=== PATIENT | female | born 1985 | race Caucasian/White ===

== ENCOUNTER 2016-11-07 06:46 | Inpatient (IN) | payer OTHER, MEDICAID ==
[2016-11-07] MEDS ORDERED: PRENATAL PLUS I1 TAB PO (09:19)
[2016-11-07] MEDS ORDERED: ZANTAC300 MG PO (09:19)
[2016-11-08] MEDS ORDERED: NORCO 325-5 MG1 TAB PO (13:00)
[2016-11-08] MEDS ORDERED: MOTRIN800 MG PO (13:00)
[2016-11-08] MEDS ORDERED: COLACE100 MG PO (13:02)
== END 2016-11-08 16:38 | disposition short-term general hospital (02) | DRG 775 ==
LOC: LDROP 06:46 → LDRIP 06:47
PROVIDERS: ADMIT Family Medicine
PROC: 10E0XZZ Delivery of Products of Conception, External Approach (ICD-10-PCS; principal; 2016-11-07)
PROC: 10907ZC Drainage of Amniotic Fluid, Therapeutic from Products of Conception, Via Natural or Artificial Opening (ICD-10-PCS; principal; 2016-11-07)
DX: O66.0 Obstructed labor due to shoulder dystocia (principal); Z3A.38 38 weeks gestation of pregnancy; Z37.0 Single live birth
CPT/HCPCS: A9150; J2590; J3010